=== PATIENT | female | born 1985 | race Caucasian/White ===

== ENCOUNTER → 2020-05-04 10:47 | Outpatient (CLI) | payer OTHER, SELFPAY ==
--- NOTE | ~2020-05-04 | XR_ITS ---
EXAMINATION: XR abdomen/kub 1V EXAM DATE: 05/04/2020 11:11 INDICATION: R10.9 - Unspecified abdominal pain; lower abd pain for 2 weeks. TECHNIQUE: Frontal projection of the upper abdomen, frontal projection lower abdomen/pelvis for inter pretation. There is no prior study for comparison. FINDINGS: There is expected amount of colonic stool and gas. No small bowel dilation, nonobstructiv e bowel gas pattern. There are no suspicious calcifications identified. There is no organomegaly suspected. The bones are unremarkable. Lung bases are clear. IMPRESSION: Unremarkable abdomen x-ray exam. Reviewed, dictated and finalized at location A. [employer]IGNER
== END ==
PROVIDERS: PCP Family Medicine; Visit Provider Family Medicine
DX: R10.9 Unspecified abdominal pain (principal)
CPT/HCPCS: 74018

== ENCOUNTER → 2020-08-14 11:35 | Outpatient (CLI) | payer OTHER, SELFPAY ==
--- NOTE | ~2020-08-14 | US_ITS ---
EXAMINATION: US soft tissue head and neck EXAM DATE: 08/14/2020 11:53 INDICATION: R59.0 - Localized enlarged lymph nodes. TECHNIQUE: Multiple grayscale and Doppler images of the symptomatic palpable region inferior to right ear were obtained (by a technologist who performed the scan) and subsequently reviewed. There is no prior study for comparison. FINDINGS: Within the periphery of the right parotid superficial lobe there is a focal hypoechoic region measuri ng 3 x 4 mm. This could be a tiny parotid cyst given the increased through transmission. Intraparotid lymph node also possible, or less likely primary parotid mass. IMPRESSION: Small parotid lesion most likely cyst or lymph node. Consider 6 month follow-up ultraso und. Reviewed, dictated and finalized at location B. IMPRESSION: Small parotid lesion most likely cyst or lymph node. Consider 6 m [facility] follow-up ultrasound.
== END ==
PROVIDERS: PCP Family Medicine; Visit Provider Physician Assistant
DX: R59.0 Localized enlarged lymph nodes (principal)
CPT/HCPCS: 76536

== ENCOUNTER 2020-11-11 13:55 | Emergency (ER) | payer OTHER, SELFPAY ==
--- NOTE | ~2020-11-11 | XR_ITS ---
EXAMINATION: XR chest 2V EXAM DATE: 11/11/2020 14:31 INDICATION: Chest pain. TECHNIQUE: Frontal and lateral projections of the chest obtained and reviewed. There is no prior eric dy for comparison. FINDINGS: The lungs are clear. There are no pleural effusions. The cardiomediastinal silhouette is within normal limits. There is no pneumothorax suspected. The bones and soft tissues are unremarkab le. IMPRESSION: No acute cardiopulmonary findings. Reviewed, dictated and finalized at location A.
--- NOTE | 2020-11-11 13:57 | ECG_ITS ---
Measurements Intervals [place] Rate: 83 P: 57 NM: 168 QRS: 32 QRSD: 82 T: 39 QT: 368 QTc: 434 Interpretive Statements SINUS RHYTHM POSSIBLE LEFT ATRIAL ENLARGEMENT BORDERLINE T WAVE ABNORMALITY- ANTERIOR LEADS BASELINE ARTIFACT- I, II, III, AVR, AVL BORDERLINE ECG Electronically Signed On 11-11-2020 15:46:23 CDT by Casey Parisi D.O.
[2020-11-11 14:18] LABS: Basophils Absolute Auto 0.1 K/mm3 (0.0-0.1); Eosinophils Absolute Auto 0.1 K/mm3 (0-0.3); Eosinophils Percent Auto 1.1 % (0-4.4); Hematocrit 40.3 % (37.0-47.0); Hemoglobin 13.2 g/dL (12.0-15.0); Immature Granulocyte Absolute 0.02 K/mm3 (0.00-0.031); Immature Granulocyte Percent A 0.3 % (0-0.5); Lymphocytes Absolute Auto 1.69 K/mm3 (0.9-3.2); Lymphocytes Percent Auto 23.3 % (18.3-44.2); Mean Corpuscular HGB Conc 32.8 g/dl (32-36); Mean Corpuscular Hemoglobin 29.4 pg (26-34); Mean Corpuscular Volume 89.8 fl (80-100); Mean Platelet Volume 10.5 fl (7.4-10.4); Monocytes Absolute Auto 0.6 K/mm3 (0.1-0.6); Monocytes Percent Auto 7.9 % (2.6-8.5); Neutrophils Absolute Auto 4.8 K/mm3 (1.3-6.7); Neutrophils Percent Auto 66.4 % (45.5-73.1); Platelet Count Result 327 k/mm3 (150-375); Red Blood Count 4.49 M/mm3 (4.2-5.4); Red Cell Distribution Width 12.6 % (11.5-14.5); White Blood Count 7.3 K/mm3 (4.5-10.0)
[2020-11-11 14:21] VITALS: BP 142/98; PULSE 94; RESP 16; TEMP 37.1; O2SAT 100
[2020-11-11 14:29] LABS: Prothrombin Time 12.6 Seconds (11.1-14.7)
[2020-11-11 14:30] LABS: Partial Thromboplastin Time 30.3 SECONDS (22.3-36.8)
[2020-11-11 14:32] LABS: Anion Gap 11 mmol/L (8-16); Blood Urea Nitrogen 16 mg/dL (7-17); Calcium 9.4 mg/dL (8.4-10.2); Carbon Dioxide 26 mmol/L (22-30); Chloride 104 mmol/L (98-107); Estimated CRCL calculation 80 ml/min; Estimated Glomerular Filt Rate > 60; Glucose 121 mg/dL (65-110); Potassium 3.9 mmol/L (3.4-5.0); Sodium 141 mmol/L (137-145)
[2020-11-11 14:43] LABS: Troponin I < 0.012 ng/mL (0.000-0.034)
[2020-11-11 17:47] LABS: Troponin I < 0.012 ng/mL (0.000-0.034)
[2020-11-11 17:55] VITALS: BP 128/99; PULSE 74; RESP 13; TEMP 36.4; O2SAT 100
[2020-11-11 18:06] VITALS: PULSE 72; O2SAT 100
[2020-11-11 19:01] VITALS: BP 117/81; PULSE 66; RESP 16; O2SAT 100
[2020-11-11 19:31] VITALS: BP 102/78; PULSE 72; RESP 25; O2SAT 97
--- NOTE | 2020-11-11 20:11 | ED.GENADULT ---
HPI - General Adult General Chief complaint: Chest Pain Stated complaint: chest pain Time Seen by Provider: 11/11/20 17:32 Source: patient Mode of arrival: ambulatory Limitations: no limitations History of Present Illness HPI narrative: Patient presents with chief complaint of intermittent burning-like sensation to her sternum that have been intermittent since the end of July. 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 She states sometimes she takes tylenol or just waits and it goes away. She notices it more when active such as doing laundry or picking things up. She denies any shortness of breath, fever, nausea, vomiting, radiation of pain. She states she is going out of town tomorrow so she wanted to be evaluated. She states she ended prolonged steroid prescription in july and has a history of ulcers so she avoids taking nsaids. She states right now she feels the sensation but it is not painful or disruptive to her activity. Related Data Home Medications Medication Instructions Recorded Confirmed clindamycin phosphate 1 % topical 1 applic TOPICAL DAILY 05/02/20 08/09/20 solution tretinoin 0.05 % topical cream 1 applic TOPICAL QHS 05/02/20 08/09/20 white petrolatum-mineral oil 83 1 applic EACH EYE QHS 05/02/20 08/09/20 %-15 % eye ointment Allergies Allergy/AdvReac Type Severity Reaction Status Date / Time polymyxin B Allergy Swelling Verified 11/11/20 16:36 of the Eye Review of Systems Review of Systems: CONSTITUTIONAL: Denies fever, chills, or sweats. EYES: Denies visual changes, redness, or discharge. ENT: Denies rhinorrhea, congestion, sore throat, or otalgia. CARDIOVASCULAR: Reports chest pain denies palpitations, or edema. RESPIRATORY: Denies cough or dyspnea. GASTROINTESTINAL: Denies abdominal pain, nausea, vomiting, or diarrhea. GENITOURINARY: Denies dysuria or hematuria. SKIN: Denies rash or itching. MUSCULOSKELETAL: Denies back pain, joint pain, or myalgia. NEUROLOGIC: Denies headache, numbness, dizziness, or weakness. PSYCHIATRIC: Denies anxiety or depression. [facility] Family History Family History Grandparent Diabetes mellitus Family history of cardiovascular disease Cerebrovascular accident Mother Family history of genetic disorder Family history of rheumatoid arthritis Other Family history of malignant neoplasm Social History Social History (Updated 08/04/20 @ 16:31 by Kamila Dash [facility]) Second hand tobacco smoke exposure: No Alcohol intake: current Exam Narrative: GENERAL: Well-appearing, well-nourished, and in no acute distress. Patient sitting in bed reading room when I entered the room. Patient smiling and sucking normally without any signs of discomfort. HEAD: Normocephalic, atraumatic. EYES: PERRLA and EOMI. ENT: Nares clear, no rhinorrhea or epistaxis. Mucous membranes moist. Oropharynx without tonsillar hypertrophy exudate or other lesions. Bilateral TMs pearly romero nonbulging NECK: Supple. No adenopathy or masses. CHEST: Clear to auscultation. No pain elicited with palpation of chest wall. No respiratory distress. No wheezes rales or rhonchi HEART: Regular rate and rhythm. No murmur heard. No friction rub noted on exam Normal peripheral pulses. ABDOMEN: Soft, nontender, nondistended, normal active bowel sounds. EXTREMITIES: Normal range of motion. No edema. SKIN: Warm, dry, no rash. NEURO: No focal deficits. Alert and oriented x3. PSYCH: Normal mood and affect. Course Vital Signs Vital signs: Vital Signs Temperature 98.8 F 11/11/20 14:21 Pulse Rate 94 11/11/20 14:21 Respiratory Rate 16 11/11/20 14:21 Blood Pressure 142/98 H 11/11/20 14:21 Pulse Oximetry 100 11/11/20 14:21 Temperature 97.6 F 11/11/20 17:55 Pulse Rate 72 11/11/20 19:31 Respiratory Rate 25 H
[2020-11-11 20:19] LABS: Troponin I < 0.012 ng/mL (0.000-0.034)
[2020-11-11 20:34] VITALS: BP 105/79; PULSE 68; RESP 15; TEMP 36.4; O2SAT 100
== END 2020-11-11 20:36 | disposition home or self-care (01) ==
PROVIDERS: Emergency Medicine; Emergency Provider Emergency Medicine; PCP Family Medicine
DX: R07.89 Other chest pain (principal); R94.31 Abnormal electrocardiogram [ECG] [EKG]
CPT/HCPCS: 36415; 71046; 80048; 84484; 85025; 85610; 85730; 93005; 99282

== ENCOUNTER → 2020-12-15 13:32 | Outpatient (CLI) | payer OTHER, SELFPAY ==
--- NOTE | ~2020-12-15 | XR_ITS ---
EXAMINATION: XR soft tissue neck DATE: 12/15/2020 13:43 INDICATION: Other diseases of salivary glands. Neck swelling. TECHNIQUE: 2 views of the neck soft tissues were obtained. COMPARISON: None. FINDINGS: The adenoids, palatine tonsils, prevertebral soft tissues, epiglottis, and glottis are norm al. IMPRESSION: 1. Normal neck soft tissues. Reviewed, dictated and finalized at location A.
== END ==
PROVIDERS: PCP Family Medicine; Visit Provider Family Medicine
DX: K11.8 Other diseases of salivary glands (principal); M54.2 Cervicalgia
CPT/HCPCS: 70360

== ENCOUNTER → 2020-12-20 11:47 | Outpatient (CLI) | payer OTHER, SELFPAY ==
--- NOTE | ~2020-12-20 | US_ITS ---
EXAMINATION: US soft tissue head and neck DATE: 12/20/2020 12:04 INDICATION: Other diseases of salivary glands. TECHNIQUE: Multiple grayscale and Doppler ultrasound images of the head and neck were obtained. COMPARISON: Ultrasound 08/14/2020 FINDINGS: There are normal lymph nodes in the right parotid gland. IMPRESSION: 1. No abnormal mass or lymphadenopathy in the right parotid gland. Reviewed, dictated and finalized at location A.
== END ==
PROVIDERS: PCP Family Medicine; Visit Provider Family Medicine
DX: K11.8 Other diseases of salivary glands (principal)
CPT/HCPCS: 76536

== ENCOUNTER 2022-01-23 14:08 | Outpatient (CLI) | payer OTHER, SELFPAY ==
[2022-01-23 15:13] LABS: Influenza A QL RT-PCR Positive (Negative); Influenza B QL RT-PCR Negative (Negative); RSV RNA, RT-PCR Negative (Negative); SARS-CoV-2 RNA PCR Negative
== END 2022-01-23 14:09 | disposition home or self-care (01) ==
LOC: ANHLAB 14:12
PROVIDERS: PCP Family Medicine; Visit Provider Nurse Practitioner
DX: R50.9 Fever, unspecified (principal); Z20.822 Contact with and (suspected) exposure to COVID-19
CPT/HCPCS: 87637

== ENCOUNTER 2024-02-02 12:58 | Outpatient (CLI) | payer OTHER, SELFPAY ==
--- NOTE | ~2024-02-02 | US_ITS ---
US pelvic complete Ordering provider: Riri BarronJOCELYN History: . Bloating . Comparison: None. Technique: Transabdominal ultrasound of the pelvis (Doppler ultrasound interrogation techniques used as needed for this exam.) FINDINGS: CERVIX: Normal. UTERUS: Measures 10.4x 3.5x 5.1 cm in length which is within normal limits and is anteverted. No anita metrial masses. ENDOMETRIUM: Normal in thickness measuring 13 mm. No endometrial masses, cysts or fluid. CUL DE SAC: No free fluid. RIGHT OVARY: Normal in size measuring 2.8x 2.7x 1.9 cm. Normal echotexture. Doppler vascular flow pre sent. Dominant follicle is seen. LEFT OVARY: Normal in size measuring 1.8x 1.5x 1.5 cm. Normal echotexture. Doppler vascular flow pres ent. ADNEXA: Normal. No mass. IMPRESSION: Slightly thickened endometrium. Correlation with endometrial stage is advised. Otherwise, normal pelv ic ultrasound. Reviewed, dictated and finalized at location A. RVISOR PRE WAVE IMPRESSION: Slightly thickened endometrium. Correlation with endometrial stage is advised. Otherwise, normal pelvic ultrasound.
== END 2024-02-02 12:59 | disposition home or self-care (01) ==
PROVIDERS: PCP Physician Assistant; Visit Provider Physician Assistant
DX: R93.89 Abnormal findings on diagnostic imaging of other specified body structures (principal)
CPT/HCPCS: 76856

== ENCOUNTER 2024-02-06 08:28 | Outpatient (CLI) | payer OTHER, SELFPAY ==
--- NOTE | ~2024-02-06 | US_ITS ---
Abdominal Sonogram: Real-time sonographic imaging of the abdomen was performed. Clinical History: Abdominal bloating Findings: The liver appears normal with no evidence of mass lesion or bile duct dilatation. Main por jodie vein demonstrates normal direction of flow. The spleen is normal in size without evidence of foca l lesion. The gallbladder is well distended, and appears normal with no evidence of gallstone or wal l thickening. The common bile duct measures 3 mm. The visualized pancreas, aorta, and IVC are unrema rkable. The right kidney measures 11.8 cm in length and the left kidney measures 11.8 cm. There is no hydronephrosis or renal calculus. Impression: Unremarkable abdominal ultrasound. Reviewed, dictated and finalized at location . LOGIST Impression: Unremarkable abdominal ultrasound.
== END 2024-02-06 08:29 | disposition home or self-care (01) ==
LOC: GOSHIMG 08:29
PROVIDERS: PCP Physician Assistant; Visit Provider Physician Assistant
DX: R14.0 Abdominal distension (gaseous) (principal)
CPT/HCPCS: 76700

== ENCOUNTER 2024-07-20 08:08 | Outpatient (CLI) | payer OTHER, SELFPAY ==
--- NOTE | ~2024-07-20 | XR_ITS ---
EXAMINATION: XR UGIAC wo kub DATE: 07/20/2024 08:51 INDICATION: Indigestion TECHNIQUE: The patient drank thick barium, gas-producing crystals, and thin barium. A total of 731 fl uoroscopic images of the esophagus, stomach, and proximal small bowel were obtained. Fluoroscopy expo sure time was 1.5 minutes. Total DAP was 9.056 mGycm^2. COMPARISON: None. FINDINGS: The esophagus is normal without mass or stricture. Esophageal motility is normal. There is no hiatal hernia. There was no gastroesophageal reflux with provocative maneuvers. The stomach and pr oximal small bowel are normal. IMPRESSION: 1. Normal upper GI study. Reviewed, dictated and finalized at location A. IMPRESSION: 1. Normal upper GI study.
--- OUTSIDE RECORDS SUMMARY | 2024-07-20 08:13 | XMS_ITS | Referral Summary ---
Author Organization [address] [address] Care Team Providers Care News Operations Manager Name Role Phone Tena Reyes DO Primary Care Provider [phone] Encounters Date Type Department Care Team Description 06/14/2024 10:30 AM CDT Office Visit [facility] [address] [place] [address] [address] [place] [address] Kelli Escobar PA Acne vulgaris (Primary Dx); Inflamed acrochordon; Lentigo; Multiple benign nevi; Seborrheic keratosis from Last 3 Months Allergies Active Allergy Reactions Criticality Noted Date Comments Polymyxin B Rash Medium 06/16/2023 allergic reaction to eye drops Polynoxylin Swelling Medium 04/28/2022 Spironolactone Headache,Nausea & Vomiting,Nausea And Vomiting,Stomach upset Low 12/30/2022 Medications progesterone (PROMETRIUM) 100 mg capsule Take 2 capsules (200 mg total) by mouth nightly 4 Active tretinoin (RETIN-A) 0.05 % cream APPLY A PEA SIZE AMOUNT TO FACE EVERY NIGHT AT BEDTIME 45 g 3 4 Active clindamycin (CLEOCIN T) 1 % lotion Apply to the face PRN in the AM 60 mL 6 4 Active cycloSPORINE (RESTASIS) 0.05 % ophthalmic emulsion Administer 1 drop into affected eye(s) 2 (two) times a day 4 Active polyvinyl alcohol (LIQUIFILM TEARS) 1.4 % ophthalmic solution Administer 1 drop into affected eye(s) 4 (four) times a day as needed Active Active Problems No known active problems Social History Tobacco Use Types Packs/Day Years Used Date Smoking Tobacco: Never Smokeless Tobacco: Never Tobacco Cessation:Counseling Given: Not Answered Comments Unknown Sex and Gender Information Value Date Recorded Sex Assigned at Not on file Legal Sex Female 3:49 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 PRINCIPAL Gender Identity Female 01/14/2020 8:37 AM PRESCHOOL ASSISTANT PRINCIPAL Sexual Orientation Straight 01/14/2020 8: 38 AM PRESCHOOL ASSISTANT PRINCIPAL Last Filed Vital Signs Vital Sign Reading Time Taken Comments Blood Pressure 104/82 06/26/2023 3:48 PM CDT Pulse 76 06/26/2023 3:48 PM CDT Temperature 37.2 C (98.9 F) 06/26/2023 3:48 PM CDT Respiratory Rate 20 06/26/2023 3:48 PM CDT Oxygen Saturation 98% 06/26/2023 3:48 PM CDT Inhaled Oxygen Concentration - - Weight 90.7 kg (200 lb) 06/26/2023 3:48 PM CDT Height 175.3 cm (5' 9 ) 06/26/2023 3:48 PM CDT Body Mass Index 29.53 06/26/2023 3:48 PM CDT Plan of Treatment Not on file Insurance Care Teams News Operations Manager Relationship Specialty Start Date End Date Tena Reyes DO PCP - General Family Medicine 05/28/22
--- OUTSIDE RECORDS SUMMARY | 2024-07-20 08:13 | XMS_ITS | Data Portability ---
Author Organization [facility] ROSALIAFernando [facility] Address [address] [place] [address] Care Team Providers Care Svp Chief Marketing Officer Name Role Phone MARIO COHN Primary Care Provider Unavailab le Assessment No assessment recorded. Plan of Treatment Reminders Order Date Submit Date Provider Last Modified By Organization Details Last Modified Time Details Appointments None recorded. Lab amylase + lipase, serum 2023 024 [place] [facility], [address], [address], [place], [address], 4 17:07:25 CMP, serum or plasma 2023 024 [place] [facility], [address], [address], [place], [address], 4 17:07:17 CBC w/ auto diff 2023 024 [place] [facility], [address], [address], [place], [address], 4 17:07:22 insulin, serum 2023 024 [place] [facility], [address], [address], [place], [address], 4 17:07:21 HbA1c (hemoglobin A1c), blood 2023 024 [place] [facility], [address], [address], [place], [address], 17:07:20 TSH + free T4, serum 2023 [place] [facility] [address], [address], [place], [address], 4 17:07:16 T3, free, serum or plasma 2023 [place] Davin, [address], [address], [place], [address], 4 17:07:24 vitamin B12 + folate, serum or blood 2023 RODRÍGUEZCINTHYA Jin, [address], [address], [place], [address], 4 17:07:18 thyroperoxi dase Ab, serum 2023 [place] [facility], [address], [address], [place], [address], 4 17:07:23 iron + TIBC + ferritin, serum 2023 [place] [facility], [address], [address], [place], [address], 4 17:07:26 vitamin D, 25-hydroxy, total, serum 2023 [place] Merlene, [address], [address], [place], [address], 4 17:07:28 testosteron e, total, serum 2023 [place] Merlene, [address], [address], [place], [address], 4 17:07:27 Referral None recorded. Procedures None recorded. Surgeries None recorded. Imaging US, abdomen + pelvis 2023 [facility], [address] [place] [address], [address], [place], [address], 4 12:48:40 RF, upper gastrointes tinal tract, w/ contrast PO 2023 024 RORDÍGUEZ [facility], [address] [facility], [address], [place], [address], 04:06:50 Medication Orders None recorded. Patient TargetsNo targets recorded. Patient Instructions Encounter Date Encounter Id Patient Instructions Last Modified By Organization Details Last Modified Time 01/26/2024 [id number] A healthy lifestyle: care instructions [email or web address] Not available 01/26/2024 15:23:18 Reason for Referral None Reported. Results Created Date Observation Date Name Description Value Unit Range Abnormal Flag Note LastModifiedBy Organization Detail LastModifiedTime 02/06/2002/07/2024 TSH+F REE T4 TSH 2.810 uIU/m L 0.450- 4.500 Not Available [facility] [address] [place], [address], 02/16/2024 17:07:16 02/06/20 24 02/07/2024 TSH+F REE T4 T4,free(dire ct) 1.14 NG/dL 0.82-1 .77 Not Available [facility] [address] [place], [address], 02/16/2024 17:07:16 02/06/20 24 02/07/2024 COMP. METAB OLIC PANEL (14) glucose 99 mg/dL 70-99 Not Available [facility] [address] [place], [address], 02/16/2024 17:07:17 02/06/20 24 02/07/2024 COMP. METAB OLIC PANEL (14) BUN 18 mg/dL 6-20 Not Available [facility] [address] [place], [address], 02/16/2024 17:07:17 02/06/20 24 02/07/2024 COMP. METAB OLIC PANEL (14) creatinine 0.95 mg/dL 0.57-1 .00 Not Available [facility] [address] [place], [address], 02/16/2024 17:07:17 02/06/20 24 02/07/2024 COMP. METAB OLIC PANEL (14) eGFR 79 mL/mi n/1.7 3 >59 Not Available [facility] [address] [place], [address], 02/16/2024 17:07:17 02/06/20 24 02/07/2024 COMP. METAB OLIC PANEL (14) BUN/creatini ne ratio 19 9-23 Not Available [facility] [address] [place], [address], 02/16/2024 17:07:17 02/06/20 24 02/07/2024 COMP. METAB OLIC PANEL (14) sodium 141 mmol/ L 134-14 4 Not Available [facility] [address] [place], [address], 02/16/2024 17:07:17 02/06/20 24 02/07/2024 COMP. METAB OLIC PANEL (14) potassium 4.5 mmol/ L 3.5-5. 2 Not Available [facility] [address] [place], [address], 02/16/2024 17:07:17 02/06/20 24 02/07/2024 COMP. METAB OLIC PANEL (14) chloride 104 mmol/ L 96-106 Not Available [facility] [address] [place], [address], 02/16/2024 17:07:17 02/06/20 24 02/07/2024 COMP. METAB OLIC PANEL (14) carbon dioxide, total 24 mmol/ L 20-29 Not Available [facility] [address] [place], [address], 02/16/2024 17:07:17 02/06/20 24 02/07/2024 COMP. METAB OLIC PANEL (14) calcium 9.3 mg/dL 8.7-10 .2 Not Available [facility] [address] [place], [address], 02/16/2024 17:07:17 02/06/20 24 02/07/2024 COMP. METAB OLIC PANEL (14) protein, total 7.0 g/dL 6.0-8. 5 Not Available [facility] [address] [place], [address], 02/16/2024 17:07:17 02/06/20 24 02/07/2024 COMP. METAB OLIC PANEL (14) albumin 4.3 g/dL 3.9-4. 9 Not Available [facility] [address] [place], [address], 02/16/2024 17:07:17 02/06/20 24 02/07/2024 COMP. METAB OLIC PANEL (14) globulin, total 2.7 g/dL 1.5-4. 5 Not Available [facility] [address] [place], [address], 02/16/2024 17:07:17 02/06/20 24 02/07/2024 COMP. METAB OLIC PANEL (14) bilirubin, total 0.4 mg/dL 0.0-1. 2 Not Available [facility] [address] [place], [address], 02/16/2024 17:07:17 02/06/20 24 02/07/2024 COMP. METAB OLIC PANEL (14) alkaline phosphatase 54 IU/L 44-121 Not Available [facility] [address] [place], [address], 02/16/2024 17:07:17 02/06/20 24 02/07/2024 COMP. METAB OLIC PANEL (14) AST (SGOT) 19 IU/L 0-40 Not Available [facility] [address] [place], [address], 02/16/2024 17:07:17 02/06/20 24 02/07/2024 COMP. METAB OLIC PANEL (14) ALT (SGPT) 14 IU/L 0-32 Not Available [facility] [address] [place], [address], 02/16/2024 17:07:17 02/06/20 24 02/07/2024 VITAM IN B12 AND FOLAT E vitamin B12 >2000 pg/mL 232-12 45 above high normal Not Available [facility] [address] [place], [address], 02/16/2024 17:07:18 02/06/20 24 02/07/2024 VITAM IN B12 AND FOLAT E folate (folic acid), serum >20.0 A serum folat e charisas ntrat ion of less than 3.1 ng/mL is consi dered to repre sent clini ramos defic iency . Not Available [facility] [address] [place], [address], 02/16/2024 17:07:18 02/06/20 24 02/07/2024 HEMOG LOBIN A1C hemoglobin A1C 5.6 % 4.8-5. 6 Predi abete s: 5.7 - 6.4 Diabe tamra: >6.4 Glyce sami contr ol for adult s with diabe tamra: <7.0 Not Available [facility] [address] [place], [address], 02/16/2024 17:07:20 02/06/20 24 02/08/2024 INSUL IN insulin 9.3 uIU/m L 2.6-24 .9 Not Available [facility] [address] [place], [address], 02/16/2024 17:07:21 02/06/20 24 02/07/2024 CBC WITH DIFFE RENTI AL/PL ATELE T WBC 6.8 x10e3 /uL 3.4-10 .8 Not Available [facility] [address] [place], [address], 02/16/2024 17:07:22 02/06/20 24 02/07/2024 CBC WITH DIFFE RENTI AL/PL ATELE T RBC 4.50 x10e6 /uL 3.77-5 .28 Not Available [facility] [address] [place], [address], 02/16/2024 17:07:22 02/06/20 24 02/07/2024 CBC WITH DIFFE RENTI AL/PL ATELE T hemoglobin 13.3 g/dL 11.1-1 5.9 Not Available [facility] [address] [place], [address], 02/16/2024 17:07:22 02/06/20 24 02/07/2024 CBC WITH DIFFE RENTI AL/PL ATELE T hematocrit 41.6 % 34.0-4 6.6 Not Available [facility] [address] [place], [address], 02/16/2024 17:07:22 02/06/20 24 02/07/2024 CBC WITH DIFFE RENTI AL/PL ATELE T MCV 92 fL 79-97 Not Available [facility] [address] [place], [address], 02/16/2024 17:07:22 02/06/20 24 02/07/2024 CBC WITH DIFFE RENTI AL/PL ATELE T MCH 29.6 pg 26.6-3 3.0 Not Available [facility] [address] [place], [address], 02/16/2024 17:07:22 02/06/20 24 02/07/2024 CBC WITH DIFFE RENTI AL/PL ATELE T MCHC 32.0 g/dL 31.5-3 5.7 Not Available [facility] [address] [place], [address], 02/16/2024 17:07:22 02/06/20 24 02/07/2024 CBC WITH DIFFE RENTI AL/PL ATELE T RDW 12.4 % 11.7-1 5.4 Not Available [facility] [address] [place], [address], 02/16/2024 17:07:22 02/06/20 24 02/07/2024 CBC WITH DIFFE RENTI AL/PL ATELE T platelets 289 x10e3 /uL 150-45 0 Not Available [facility] [address] [place], [address], 02/16/2024 17:07:22 02/06/20 24 02/07/2024 CBC WITH DIFFE RENTI AL/PL ATELE T neutrophils 61 % notest ab. Not Available [facility] [address] [place], [address], 02/16/2024 17:07:22 02/06/20 24 02/07/2024 CBC WITH DIFFE RENTI AL/PL ATELE T lymphs 27 % notest ab. Not Available [facility] [address] [place], [address], 02/16/2024 17:07:22 02/06/20 24 02/07/2024 CBC WITH DIFFE RENTI AL/PL ATELE T monocytes 9 % notest ab. Not Available [facility] [address] [place], [address], 02/16/2024 17:07:22 02/06/20 24 02/07/2024 CBC WITH DIFFE RENTI AL/PL ATELE T eos 2 % notest ab. Not Available [facility] [address] [place], [address], 02/16/2024 17:07:22 02/06/20 24 02/07/2024 CBC WITH DIFFE RENTI AL/PL ATELE T basos 1 % notest ab. Not Available [facility] [address] [place], [address], 02/16/2024 17:07:22 02/06/20 24 02/07/2024 CBC WITH DIFFE RENTI AL/PL ATELE T neutrophils (absolute) 4.2 x10e3 /uL 1.4-7. 0 Not Available [facility] [address] [place], [address], 02/16/2024 17:07:22 02/06/20 24 02/07/2024 CBC WITH DIFFE RENTI AL/PL ATELE T lymphs (absolute) 1.8 x10e3 /uL 0.7-3. 1 Not Available [facility] [address] [place], [address], 02/16/2024 17:07:22 02/06/20 24 02/07/2024 CBC WITH DIFFE RENTI AL/PL ATELE T monocytes(ab solute) 0.6 x10e3 /uL 0.1-0. 9 Not Available [facility] [address] [place], [address], 02/16/2024 17:07:22 02/06/20 24 02/07/2024 CBC WITH DIFFE RENTI AL/PL ATELE T eos (absolute) 0.1 x10e3 /uL 0.0-0. 4 Not Available [facility] [address] [place], [address], 02/16/2024 17:07:22 02/06/20 24 02/07/2024 CBC WITH DIFFE RENTI AL/PL ATELE T baso (absolute) 0.0 x10e3 /uL 0.0-0. 2 Not Available [facility] [address] [place], [address], 02/16/2024 17:07:22 02/06/20 24 02/07/2024 CBC WITH DIFFE RENTI AL/PL ATELE T immature granulocytes 0 % notest ab. Not Available [facility] [address] [place], [address], 02/16/2024 17:07:22 02/06/20 24 02/07/2024 CBC WITH DIFFE RENTI AL/PL ATELE T immature grans (abs) 0.0 x10e3 /uL 0.0-0. 1 Not Available [facility] [address] [place], [address], 02/16/2024 17:07:22 02/06/20 24 02/07/2024 THYRO ID ANTIB ODIES thyroid peroxidase (tpo) Ab <9 IU/mL 0-34 Not Available [facility] [address] [place], [address], 02/16/2024 17:07:23 02/06/20 24 02/09/2024 THYRO ID ANTIB ODIES thyroglobuli n antibody <1.0 IU/mL 0.0-0. 9 Thyro globu linda Antib moni measu red by Windy Bhattit er Metho dolog y It shoul d be noted that the prese nce of thyro globu linda antib odies may not be patho genic nor diagn ostic , espec ially at very low level s. The assay adeline actur er has found that four perce nt of indiv idual s witho ut evide nce of thyro id disea se or autoi mmuni ty will have posit pablito TgAb level s up to 4 IU/mL . Not Available [facility] [address] [place], [address], 02/16/2024 17:07:23 02/06/20 24 02/07/2024 TRIIO DOTHY STANISLAV E (T3), FREE triiodothyro nine (T3), free 2.4 pg/mL 2.0-4. 4 Not Available [facility] [address] [place], [address], 02/16/2024 17:07:24 02/06/20 24 02/07/2024 LORE+L IPASE amylase 51 U/L 31-110 Not Available [facility] [address] [place], [address], 02/16/2024 17:07:25 02/06/20 24 02/07/2024 LORE+L IPASE lipase 27 U/L 14-72 Not Available [facility] [address] [place], [address], 02/16/2024 17:07:25 02/06/20 24 02/07/2024 FE+TI BC+FE R iron bind.cap.(TI BC) 275 ug/dL 250-45 0 Not Available [facility] [address] [place], [address], 02/16/2024 17:07:26 02/06/20 24 02/07/2024 FE+TI BC+FE R UIBC 171 ug/dL 131-42 5 Not Available [facility] [address] [place], [address], 02/16/2024 17:07:26 02/06/20 24 02/07/2024 FE+TI BC+FE R iron 104 ug/dL 27-159 Not Available [facility] [address] [place], [address], 02/16/2024 17:07:26 02/06/20 24 02/07/2024 FE+TI BC+FE R iron saturation 38 % 15-55 Not Available [facility] [address] [facility], [place], [address], 02/16/2024 17:07:26 02/06/20 24 02/07/2024 FE+TI BC+FE R ferritin 46 NG/mL 15-150 Not Available [facility] [address] [facility], [place], [address], 02/16/2024 17:07:26 02/06/20 24 02/16/2024 TESTO STERO NE, TOTAL , LC/MS testosterone , total, lc/MS 11 NG/dL This test was erika simpson and its perfo rmanc e fermin cteri stics deter mined by [facility]. It has not been clear ed or appro bianca by the Food and Drug Admin istra tion. Refer ence Range : Adult Femal es Preme nopau walt 10 - 55 Postm enopa usal 7 - 40 Not Available [facility] [address] [facility], [place], [address], 02/16/2024 17:07:27 02/06/20 24 02/07/2024 VITAM IN D, 25-HY DROXY vitamin D, 25-hydroxy 29.5 NG/mL 30.0-1 00.0 below low normal Vitam in D defic iency has been defin ed by the Insti tute of Medic ine and an Endoc rine Socie ty pract ice guide line as a level of serum 25-OH vitam in D less than 20 ng/mL (1,2) . The Endoc rine Socie ty went on to furth er defin e vitam in D insuf ficie ncy as a level betwe en 21 and 29 ng/mL (2). 1. IOM (Inst itute of Medic ine). 2009. Dieta ry refer ence intak es for calci um and D. Tatiana leslie [place]: The Natio [facility] Press . 2. Shivam young MF, Bina young [place], Shadia off-F errar i BOUCHER, et al. Evalu ation , treat ment, and preve ntion of vitam in D defic iency : an Endoc rine Socie ty clini ramos pract ice guide line. JCEM. 2010; 96(1) :1911 -30. Not Available [facility] [address] [facility], [place], [address], 02/16/2024 17:07:28 04/02/19 25 04/03/2024 Testo stero ne [Mass /volu me] in Serum or Plasm a testosterone 5 NG/dL low: 8NG/dL high: 60NG/d L low Testo stero ne 5 (L) 8 - 60 ng/dL [facility] ACCOU NT BILL Not Available Not Available 04/27/2024 12:52:41 04/02/19 25 04/03/2024 Testo stero ne [Mass /volu me] in Serum or Plasm a Unknown Analyte Perfor [facility] at: 01 - [address] [id number] [id number] [facility] or: Dixie mckinney PhD, Not Available Not Available 12:52:41 04/02/19 25 04/03/2024 Testo stero ne [Mass /volu me] in Serum or Plasm a interpretati on and review of laboratory results Abnorm al Not Available Not Available 12:52:41 04/02/19 25 04/03/2024 Compr ehens pablito metab olic 1999 panel - Serum or Plasm a glucose [mass/volume ] in serum or plasma 88 mg/dL low: 70mg/d Lhigh: 99mg/d L Gluco se 88 70 - 99 mg/dL [facility] ACCOU NT BILL Not Available Not Available 04/27/2024 12:52:41 04/02/19 25 04/03/2024 Compr ehens pablito metab olic 1999 panel - Serum or Plasm a BUN 11 mg/dL low: 6mg/dL high: 20mg/d L BUN 11 6 - 20 mg/dL [facility] ACCOU NT BILL Not Available Not Available 04/27/2024 12:52:41 04/02/19 25 04/03/2024 Compr ehens pablito metab olic 2000 panel - Serum or Plasm a creatinine [mass/volume ] in serum or plasma 0.91 mg/dL low: 0.57mg /dLhig h: 1mg/dL Creat inine 0.91 0.57 - 1.00 mg/dL [facility] ACCOU NT BILL Not Available Not Available 04/27/2024 12:52:41 04/02/19 25 04/03/2024 Compr ens pablito metab [facility] 1999 panel - Serum or Plasm a glomerular filtration rate/1.73 sq M.predicted [volume rate/area] in serum, plasma or blood by creatinine-b ased formula (CKD-epi) 83 mL/mi n/1.7 3 low: 59mL/m in/1.7 3 eGFR by CKD-E PI 83 >59 mL/mi n/1.7 3 [facility] ACCOU NT BILL Not Available Not Available 04/27/2024 12:52:41 04/02/19 25 04/03/2024 Compr Valon Lasersens pablito metab [facility] 2000 panel - Serum or Plasm a BUN/creatini ne ratio 12 low: 9high: 23 BUN/C reati nine Ratio 12 9 - 23 [facility] ACCOU NT BILL Not Available Not Available 04/27/2024 12:52:41 04/02/19 25 04/03/2024 Compr Valon Lasersens pablito metab olic 2000 panel - Serum or Plasm a sodium 140 mmol/ L low: 134mmo l/Lhig h: 144mmo l/L Sodiu m 140 134 - 144 mmol/ L [facility] ACCOU NT BILL Not Available Not Available 04/27/2024 12:52:41 04/02/19 25 04/03/2024 Compr Valon Lasersens pablito metab olic 2000 panel - Serum or Plasm a potassium 4.7 mmol/ L low: 3.5mmo l/Lhig h: 5.2mmo l/L Potas sium 4.7 3.5 - 5.2 mmol/ L [facility] ACCOU NT BILL Not Available Not Available 04/27/2024 12:52:41 04/02/19 25 04/03/2024 Compr Valon Lasersens pablito metab olic 2000 panel - Serum or Plasm a chloride 105 mmol/ L low: 96mmol /Lhigh : 106mmo l/L Chlor katerin 105 96 - 106 mmol/ L [facility] ACCOU NT BILL Not Available Not Available 04/27/2024 12:52:41 04/02/19 25 04/03/2024 Compr ehens pablito metab olic 2000 panel - Serum or Plasm a CO2 24 mmol/ L low: 20mmol /Lhigh : 29mmol /L CO2 24 20 - 29 mmol/ L [facility] ACCOU NT BILL Not Available Not Available 04/27/2024 12:52:41 04/02/19 25 04/03/2024 Compr ehens pablito metab olic 2000 panel - Serum or Plasm a calcium 9.3 mg/dL low: 8.7mg/ dLhigh : 10.2mg /dL Calci um 9.3 8.7 - 10.2 mg/dL [facility] ACCOU NT BILL Not Available Not Available 04/27/2024 12:52:41 04/02/19 25 04/03/2024 Compr ehens pablito metab olic 2000 panel - Serum or Plasm a protein total 6.7 g/dL low: 6g/dLh igh: 8.5g/d L Prote in Total 6.7 6.0 - 8.5 g/dL [facility] ACCOU NT BILL Not Available Not Available 04/27/2024 12:52:41 04/02/19 25 04/03/2024 Compr ehens pablito metab olic 2000 panel - Serum or Plasm a albumin 4.2 g/dL low: 3.9g/d Lhigh: 4.9g/d L Album in 4.2 3.9 - 4.9 g/dL [facility] ACCOU NT BILL Not Available Not Available 04/27/2024 12:52:41 04/02/19 25 04/03/2024 Compr ehens pablito metab olic 2000 panel - Serum or Plasm a globulin total 2.5 g/dL low: 1.5g/d Lhigh: 4.5g/d L Globu linda Total 2.5 1.5 - 4.5 g/dL [facility] ACCOU NT BILL Not Available Not Available 04/27/2024 12:52:41 04/02/19 25 04/03/2024 Compr ehens pablito metab olic 2000 panel - Serum or Plasm a bilirubin total 0.2 mg/dL low: 0mg/dL high: 1.2mg/ dL Bilir ubin Total 0.2 0.0 - 1.2 mg/dL [facility] ACCOU NT BILL Not Available Not Available 04/27/2024 12:52:41 04/02/19 25 04/03/2024 Compr ehens pablito metab olic 2000 panel - Serum or Plasm a alkaline phosphatase 50 text: 44 - 121 IU/L Alkal ine Phosp hatas e 50 44 - 121 IU/L [facility] ACCOU NT BILL Not Available Not Available 04/27/2024 12:52:41 04/02/19 25 04/03/2024 Compr ehens pablito metab olic 2000 panel - Serum or Plasm a AST 20 text: 0 - 40 IU/L AST 20 0 - 40 IU/L [facility] ACCOU NT BILL Not Available Not Available 04/27/2024 12:52:41 04/02/19 25 04/03/2024 Compr ehens pablito metab olic 2000 panel - Serum or Plasm a ALT 17 text: 0 - 32 IU/L ALT 17 0 - 32 IU/L [facility] ACCOU NT BILL Not Available Not Available 04/27/2024 12:52:41 04/02/19 25 04/03/2024 Compr ehens pablito metab olic 2000 panel - Serum or Plasm a Unknown Analyte Perfor med at: 01 - [address] [id number] [facility] or: Dixie mckinney PhD, Not Available Not Available 12:52:41 04/02/19 25 04/03/2024 Thyro tropi n [Unit s/vol ume] in Serum or Plasm a by Detec tion limit <= 0.005 mIU/L TSH 2.19 text: 0.450 - 4.500 uIU/mL TSH 2.190 0.450 - 4.500 uIU/m L [facility] ACCOU NT BILL Not Available Not Available 04/27/2024 12:52:41 04/02/19 25 04/03/2024 Thyro tropi n [Unit s/vol ume] in Serum or Plasm a by Detec tion limit <= 0.005 mIU/L Unknown Analyte Perfor med at: 01 - [facility] [address] [place] , [place] [phone] [facility] or: Dixie mckinney PhD, Not Available Not Available 12:52:41 04/02/1904/03/2024 Thyro xine (T4) free [Mass /volu me] in Serum or Plasm a T4 free 1.06 NG/dL low: 0.82NG /dLhig h: 1.77NG /dL T4 Free 1.06 0.82 - 1.77 ng/dL [facility] ACCOU NT BILL Not Available Not Available 04/27/2024 12:52:41 04/02/19 25 04/03/2024 Thyro xine (T4) free [Mass /volu me] in Serum or Plasm a Unknown Analyte Perfor med at: 01 - [address] [id number] [facility] or: Dixie mckinney PhD, Not Available Not Available 12:52:41 04/02/19 25 04/03/2024 Triio dothy stanislav e (T3) [Mass /volu me] in Serum or Plasm a T3 total 86 NG/dL low: 71NG/d Lhigh: 180NG/ dL T3 Total 86 71 - 180 ng/dL [facility] ACCOU NT BILL Not Available Not Available 04/27/2024 12:52:41 04/02/19 25 04/03/2024 Triio dothy stanislav e (T3) [Mass /volu me] in Serum or Plasm a Unknown Analyte Perfor med at: 01 - [facility] [id number] [facility] or: Dixie mckinney PhD, Not Available Not Available 12:52:41 04/14/19 25 04/15/2024 Estra diol (E2) [Mass /volu me] in Serum or Plasm a estradiol 65.8 pg/mL Estra diol 65.8 pg/mL [facility] ACCOU NT BILL Not Available Not Available 04/27/2024 12:52:41 04/14/19 25 04/15/2024 Estra diol (E2) [Mass /volu me] in Serum or Plasm a Unknown Analyte Perfor med at: 01 - [facility] [place] [address] [place], [place] [id number] 183 [facility] or: Dixie mckinney PhD, Not Available Not Available 12:52:41 04/14/19 25 04/18/2024 Estro ne (E1) [Mass /volu me] in Serum or Plasm a estrone, serum 69 pg/mL low: 27pg/m Lhigh: 231pg/ mL Estro ne, Serum 69 27 - 231 pg/mL [facility] ACCOU NT BILL Not Available Not Available 04/27/2024 12:52:41 04/14/19 25 04/18/2024 Estro ne (E1) [Mass /volu me] in Serum or Plasm a Unknown Analyte Perfor med at: 01 - [facility] [address] [facility] [place], [place] [id number] 361 [facility] or: Stephanie Garcia ra, MD, Not Available Not Available 12:52:41 04/14/19 25 04/15/2024 Folli tropi n and Lutro pin panel [Unit s/vol ume] - Serum or Plasm a LH 25.2 text: mIU/mL LH 25.2 mIU/m L [facility] ACCOU NT BILL Not Available Not Available 04/27/2024 12:52:41 04/14/19 25 04/15/2024 Folli tropi n and Lutro pin panel [Unit s/vol ume] - Serum or Plasm a FSH 13.8 text: mIU/mL FSH 13.8 mIU/m L [facility] ACCOU NT BILL Not Available Not Available 04/27/2024 12:52:41 04/14/19 25 04/15/2024 Folli tropi n and Lutro pin panel [Unit s/vol ume] - Serum or Plasm a Unknown Analyte Perfor med at: 01 - [facility] [place] [address] [place], [place] [id number] 689 [facility] or: Dixie mckinney PhD, Not Available Not Available 12:52:41 02/06/20 24 02/06/2024 US, abdom en + pelvi s No observ ation record ed. RODRÍGUEZ [facility] [address] [facility] [address], [place], [address], 02/08/2024 12:17:22 04/02/19 25 02/02/2024 US, abdom en + pelvi s No observ ation record ed. rosalie [facility] [address] [facility] [address], [place], [address], 04/27/2024 17:42:55 Result Notes None recorded. Problems Name Problem SNOMED Code Status Onset Date Resolution Date Notes Provider Name and Address Organization Details Recorded Time Body mass index 30+ - obesity 313576551 Active 2023 Queta Rdz MA [facility], [place] - [facility] 4 14:40:52 Overweight 738824005 Active 2023 KEVIN Simpson Attn: Jose villarreal,[address] [place], [address], [place] - [facility] 4 23:28:23 Fatigue 14885281 Active 2023 KEVIN Simpson Attn: Jose g,[address] [place], [address], [place] [facility] 4 23:28:25 Abnormal weight gain 631333204 Active 2023 KEVIN Simpson Attn: Jose g,[address] [place], [address], [place] [facility] 4 23:29:01 Functional bloating 446570215 Active 2023 KEVIN Simpson Attn: Jose g,[address] [place], [address], [place] [facility] 4 23:29:03 Indigestion 297731132 Active 2023 KEVIN Simpson Attn: Jose villarreal,[address] [place], [address], [place] [facility] 4 23:29:21 Abdominal bloating 406748510 Active 2023 KEVIN Simpson Attn: Jose villarreal,[address] [facility], [place], [address], [place] - [facility] 4 23:29:42 Problem Notes None recorded. Procedures Surgical History None recorded. Imaging Results Imaging Date Name Status LastModified by Organiz ation Details LastModified Time 02/06/2024 US, abdomen + pelvis completed RODRÍGUEZ [facility] [address] [facility] [address], [place], [address], 02/08/2024 12:17:22 02/02/2024 [facility], [facility] [address] [facility] [address], [place], [address], 04/27/2024 17:42:55 Procedure Notes None recorded. Medical Equipment None Reported. Allergies Allergen ID Allergen Name Allergen Category Reaction Reaction Severity Criticality Documentation Date Start Date Code Code System Note Provider Name and Address Organization Details Recorded Time 115683 apple extract food Not available Not available Not available 01/26/2024 89720 65 RxNorm Queta Rdz [place] null, [place] [facility] 4 14:41:15 495276 orange food,medi cation Not available Not available Not available 01/26/2024 28372 UNK Queta Rdz [place], [place] [facility] 4 14:42:01 439306 almond allergeni c extract food Not available Not available Not available 01/26/2024 55683 7 RxNorm Queta Rdz [place], [place] [facility] 4 14:42:17 Medications Name Sig Start Date Stop Date Status Note LastModified by Organization Details LastModified Time nitrofurantoin monohydrate/mac rocrystals 100 mg capsule TAKE 1 CAPSULE BY MOUTH EVERY 12 HOURS active Not Available Not Available No t Available Vitals Date Recorded Body weight Respiratory rate Body mass index (BMI) Body height Oxygen saturation Oxygen saturation in Arterial blood by Pulse oximetry Heart rate Systolic blood pressure Diastolic blood pressure Provider Name and Address Organization Details Last Updated DateTime 04509.6 2 g 18 /min 30.6 kg/m2 175.26 cm 99 % 99 % 87 /min 118 mm[Hg] 82 mm[Hg] Queta Rdz MA [facility] 14:47:50 Date Recorded Systolic blood pressure Diastolic blood pressure Provider Name and Address Organization Details Last Updated DateTime 01/26/2024 110 mm[Hg] 80 mm[Hg] KEVIN Simpson Attn: Accounting,[address], [place], [address], [facility] 02/01/2024 23:29:56 Social History Question Answer Notes LastModified by Organizat ion Details LastModified Time Tobacco Smoking Status Never Smoker Queta Rdz MA null, [facility] 01/26/2024 14:44:34 Do You Have An Advance Directive? Yes Trust Information not available 01/26/2024 Are You Blind Or Do You Have Difficulty Seeing? No Information not available 01/26/2024 What Is Your Level Of Caffeine Consumption? Occasional Coffee Information not available 01/26/2024 In The 14 Days Before Symptom Onset, Have You Had Close Contact With A Laboratory-confir med COVID-19 While That Case Was Ill? No Information not available 01/26/2024 In The 14 Days Before Symptom Onset, Have You Had Close Contact With A Person Who Is Under Investigation For COVID-19 While That Person Was Ill? No Information not available 01/26/2024 Have You Been To An Area Known To Be High Risk For COVID-19? No Information not available 01/26/2024 Are You Deaf Or Do You Have Serious Difficulty Hearing? No Information not available 01/26/2024 What Type Of Diet Are You Following? REGULAR Information not available 01/26/2024 Are There Any Guns Present In Your Home? No Information not available 01/26/2024 What Was The Date Of Your Most Recent Tobacco Screening? 01/26/2024 Information not available 01/26/2024 What Is Your Relationship Status? Information not available 01/26/2024 Do You Use Your Seat Belt Or Car Seat Routinely? Yes Information not available 01/26/2024 Do You Have Smoke And Carbon Monoxide Detectors In Your Home? Yes Information not available 01/26/2024 Do You Use Sunscreen Routinely? Yes Information not available 01/26/2024 Has Tobacco Cessation Counseling Been Provided? No Information not available 01/26/2024 Sex: Female Functional Status Question Answer Note LastModified by Organizat ion Details LastModified Time Do you use any illicit or recreational drugs? No Information not available 01/26/2024 Do you or have you ever used any other forms of tobacco or nicotine? No Information not available 01/26/2024 What is your level of alcohol consumption? Occasional Information not available 01/26/2024 Are you currently employed? Yes Medical leave- speak patholgisy Information not available 01/26/2024 Are you able to care for yourself? Yes Information not available 01/26/2024 What is your exercise level? Moderate Information not available 01/26/2024 Mental Status Question Answer Note LastModified by Organization D etails LastModified Time Do you feel stressed (tense, restless, nervous, or anxious, or unable to sleep at night)? [id number] Information not available 01/26/2024 Family History Relationship Description Onset Age of this Age Resolved Age Notes LastModified by Organization Details LastModified Time Mother Rheumatoid arthritis tcarterma Not available 2023 14:55:21 Medical History Condition Response Coronary Artery Disease N Other N Atrial Fibrillation N High Blood Pressure N Kidney or Bladder Problems N Thyroid Problems N GI Problems Y Depression N COPD N Blood Clots N Have you had a mammogram in the last yea r? N Skin Problems N Anemia N Heart Attack (ID) N Anxiety Disorder N Diabetes N Muscle, Joint, or Bone Problems N Seizures/Epilepsy N Have you had a colonoscopy in the last 1 0 years? N Acid Reflux (GERD) Y Cancer N Stroke N Asthma N Allergies N Have you had a PSA blood test in the las t year? N High Cholesterol N Hepatitis N Liver Disease N Headaches N Heart Failure N Osteoporosis N Gynecological History Statement/Question Response Menses Monthly Y Duration of Flow (days) 5 Flow Moderate Date of LMP 01/14/2024 LMP Approximate Obstetrics History GPAL:G 2 P 2 0 0 2 Type Value Full Term 2 Induced 0 Spontaneous 0 Premature 0 Living 2 Total 2 Immunizations Vaccine Type Date Status Note Provider Nam e and Address Organization Details Recorded Time COVID-19, mRNA, LNP-S, PF, 30 mcg/0.3 mL dose 1 completed DAMARI Simpson, [place] [facility] 01/26/2024 14:42:58 COVID-19, mRNA, LNP-S, PF, 30 mcg/0.3 mL dose 1 completed DAMARI [place] [facility] 01/26/2024 14:42:58 Influenza, split virus, trivalent, preservative 4 completed DAMARI [place] [facility] 01/26/2024 14:42:58 Influenza, split virus, quadrivalent, PF 8 completed DAMARI [place] [facility] 01/26/2024 14:42:58 Past Encounters Encounter ID Performer Location Encounter Start Date Encounter Closed Date Diagnosis/Indication Diagnosis SNOMED-CT Code Diagnosis ICD10 Code Diagnosis Note [id number] Hernesto Rodriguez [facility] [place] [address] [place] [address] 01/26/2024 14:21:35 01/26/2024 15:38:23 Body mass index 30+ - obesity 161305485 Z68.30 BMI is 30.6 Overweight 532402826 E66 .3 Patient is already following a very restricted caloric intake and exercise program Abnormal weight gain 161 554323 R63.5 Fasting insulin ordered Abdominal bloating 39507 9008 R14.0 As far as her abdominal bloating is concerned this is 1 of her primary complaints today. We will check an amylase and lipase as well as CBC and CMP and do a full ultrasound of the abdomen as well as pelvis. We will follow up with her after diagnostic studies are completed Functional bloating 0706 23142 R14.0 Await upper GI series testing as ordered above Fatigue 70160242 R53.83 Full fatigue lab panel ordered including thyroid function tests including a free T3-T4 TSH and thyroid antibodies , vitamin B12 and folate, iron studies, vitamin-D and total testostero ne Diabetes m ellitus screening 946536339 Z13.1 Routine screening A1c is ordered for baseline Indigestion 309309283 K3 0 Patient has indigestio n and some dyspepsia we will refer her for an upper GI series to evaluate for any hiatal hernia or reflux that would require acid suppressio n that could be contributi ng to her bloating Health Concerns Section Related Observation LastModified by Organization Detai ls LastModified Time None Recorded Concern Status LastModified by Organization Details LastModified Time None Recorded Advance Directives Directive Y: trust Payers Encounter Date Sequence Insurance Name Policy Number Policy Ambrocio Covered Member ID Ambrocio Member ID Guarantor Name 01/26/2024 1 [facility] [id number] Lazaro Caden Fredy [id number] Rupa Fredy Notes Date Note Type Note Provider Name and Address Organization Details Recorded Time 01/26/2024 text/html Patient presents for establishing with new PCP. She has several items that she would like to discuss which include her hormones, abdominal bloating, fatigue and weight gain. She also has underlying fatigue. She has seen other providers and just has not been satisfied with their input and diagnostic evaluations. She has also seen some functional medicine hormone providers but isn't entirely convinced that is the right route for her as well. KEVIN Simpson Attn: Accounting,[address], [place], [address], [place] [facility] 02/01/2024 23:30:20 OBGyn Episode No OBEpisode recorded.
--- OUTSIDE RECORDS SUMMARY | 2024-07-20 08:13 | XMS_ITS | Clinical Summary ---
Author Organization [facility] Address [address] [facility] [place] [address] Care Team Providers Care Mri Technologist Name Role Phone Tena Reyes DO Primary Care Provider [phone] Source Comments [facility],non-owned Affiliates and Associated Physician Practices is amultiple site organization consisting of ambulatory clinics and hospital sitesin [place], [place], [place] and [place]. This disclosure is being madepursuant to the Care Everywhere program and may not contain all information available regarding this patient. Last updated 17.[facility] Allergies Active Allergy Reactions Criticality Noted Date Comments Polymyxin B Eye Discomfort,Eye Itching,Rash,Swelling Medium 04/01/2014 allergic reaction to eye drops Polynoxylin Swelling Medium 04/28/2022 Eye Discomfort, Eye Itching, Swelling Spironolactone Headache,Nausea and/ or Vomiting 01/05/2023 Medications * Be aware that medications may not be up to date on this document. Alwaysverify current medications with the patient. Artificial Tears 1.4 % ophthalmic solution Instill 1 (one) drop into both eyes 4 times daily as needed 03/05/2023 Active Active Problems No known active problems Family History Medical History Relation Name Comments Arthritis - Rheumatoid Mother Polycystic Ovary Syndrome Paternal Cousin few cousis Diabetes - Type 2 Paternal Grandfather Relation Name Status Comments Father Alive Mother Paternal Cousin Alive Paternal Grandfather (Age 64) co mplications of DM Social History Tobacco Use Types Packs/Day Years Used Date Smoking Tobacco: Never Smokeless Tobacco: Never Tobacco Cessation:Counseling Given: Not Answered Alcohol Use Standard Drinks/Week Comments Yes 0 (1 standard drink = 0.6 oz pure alcohol) 5 drinks a week, but noone lately, 02/04 Comments No Sex and Gender Information Value Date Recorded Sex Assigned at Not on file Legal 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 Gender Identity Not on file Sexual Orientation Not on file Last Filed Vital Signs Vital Sign Reading Time Taken Comments Blood Pressure 98/78 04/05/2024 2:01 PM ASSISTANT TEACHING PROFESSOR Pulse 78 04/05/2024 2:01 PM ASSISTANT TEACHING PROFESSOR Temperature 36.8 C (98.3 F) 05/23/2017 6:21 PM CDT Respiratory Rate 16 05/23/2017 6:21 PM CDT Oxygen Saturation 98% 04/05/2024 2:01 PM ASSISTANT TEACHING PROFESSOR Inhaled Oxygen Concentration - - Weight 93.9 kg (207 lb) 04/05/2024 2:01 PM ASSISTANT TEACHING PROFESSOR Height 175.3 cm (5' 9 ) 04/05/2024 2:01 PM ASSISTANT TEACHING PROFESSOR Body Mass Index 30.57 04/05/2024 2:01 PM ASSISTANT TEACHING PROFESSOR Plan of Treatment Upcoming Encounters Date Type Department Care Team (Late st Contact Info) Description 10/26/2024 10:00 AM CDT Office Visit [facility] - Endocrinology [id number] [place] [address], [address] [address] [place] [id number] [place] [address] Health Maintenance Due Date Last Done Comments PAP SMEAR 1985 HIV SCREENING 2000 HEPATITIS C SCREENING 05/23/2003 DTAP/TDAP/TD VACCINES (1 - Tdap) 2004 HEPATITIS B VACCINE (1 of 3 - 19+ 3-dose series) 2004 COVID-19 VACCINE (3 - 2023-2 5 season) 2023 04/20/2020, 03/29/2020 DEPRESSION SCREENING 03/03/2024 INFLUENZA VACCINE (Season Ended) 2024 12/17/2017, 03/06/2013 ZOSTER VACCINE (1 of 2) 05/28/2035 HIB VACCINE Aged Out No longer eligi ble based on patient's age to complete this topic HPV VACCINE Aged Out No longer eligi ble based on patient's age to complete this topic MENINGOCOCCAL (Group B) VACCINE SHARED DECISION-MAKING Aged Out No longer eligible based on patient's age to complete this topic MENINGOCOCCAL GROUPS A/C/Y/W VACCINE Aged Out No longer eligible b ased on patient's age to complete this topic PNEUMOCOCCAL VACCINE Aged Out No long er eligible based on patient's age to complete this topic Insurance [facility] Care Teams Mri Technologist Relationship Specialty Start Date End Date Tena Reyes DO [address] [place] [address] PCP - General Family Medicine 11/05/22
--- OUTSIDE RECORDS SUMMARY | 2024-07-20 08:13 | XMS_ITS | Clinical Summary ---
Author Organization [facility] Address [address] [place] [address] Care Team Providers Care Quality Assurance Consultant Name Role Phone Tena Reyes DO Primary Care Provider [phone] Allergies Active Allergy Reactions Criticality Noted Date [...] 4 (four) times a day as needed 4 Active Active Problems No known active problems Encounters Date Type Department Care Team Description 06/14/2024 10:30 AM CDT Office Visit [facility] D[facility]atology [address] [place] [address] [address] [place] [address] Kelli Escobar PA Acne vulgaris (Primary Dx); Inflamed acrochordon; Lentigo; Multiple benign nevi; Seborrheic keratosis from Last 3 Months Social History Tobacco Use Types Packs/Day Years Used Date Smoking Tobacco: Never Smokeless Tobacco: Never Tobacco Cessation:Counseling Given: Not Answered Comments Unknown Sex and Gender Information Value Date Recorded Sex Assigned at Not on file Legal Sex Female 3:49 PM CANT 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 Gender Identity Female 01/14/2020 8:37 AM CANT HOOKER Sexual Orientation Straight 01/14/2020 8: 38 AM CANT HOOKER Obstetrics History Last Filed Vital Signs Vital Sign Reading [...] 06/26/2023 3:48 PM CDT Plan of Treatment Health Maintenance Due Date Last Done Comments Cervical Cancer Screening 1985 Depression Screening 1985 Hepatitis C Screening 1985 DTaP/Tdap/Td Vaccine (1 - Tdap) 1996 Varicella Vaccines (1 of 2 - 13+ 2-dose series) 1998 Hepatitis B Screening 05/28/2003 Regular Well Visit/Exam 18-64 05/28/2003 Influenza Vaccine (Season Ended) 2024 12/17/2017, 03/06/2013 HPV Vaccines Aged Out No longer eligi ble based on patient's age to complete this topic Pneumococcal vaccine <65 Aged Out No longer eligible based on patient's age to complete this topic Insurance [facility] Address: [address] [address] [place] [address] [facility] Address: [address] [place] [address] [facility] Address: [address] [place] [address] Care Teams Quality Assurance Consultant Relationship Specialty Start Date End Date Tena Reyes DO PCP - General Family Medicine 05/28/22
== END 2024-07-20 08:09 | disposition home or self-care (01) ==
PROVIDERS: PCP Physician Assistant; Visit Provider Physician Assistant
DX: K30 Functional dyspepsia (principal)
CPT/HCPCS: 74246